=== PATIENT | female | born 1985 | race Caucasian/White ===

== ENCOUNTER 2019-12-29 08:22 | Outpatient (CLI) | payer OTHER | END 2019-12-29 08:41 | disposition home or self-care (01) | LOC: SONOGRAMA 08:22 → MAMO-SONO 08:45 | PROVIDERS: ATTEND Obstetrics & Gynecology | DX: R10.2 Pelvic and perineal pain (principal); N92.1 Excessive and frequent menstruation with irregular cycle ==